=== PATIENT | female | born 1945 | race Caucasian/White ===

== ENCOUNTER 2016-09-22 08:20 | Outpatient (CLI) | payer MEDICARE, OTHER | END 2016-09-22 08:21 | disposition home or self-care (01) | DX: R31.9 Hematuria, unspecified (principal) ==

== ENCOUNTER 2016-09-27 08:06 | Outpatient (CLI) | payer MEDICARE, OTHER | END 2016-09-27 08:07 | disposition home or self-care (01) | DX: Z12.2 Encounter for screening for malignant neoplasm of respiratory organs (principal); Z87.891 Personal history of nicotine dependence ==

== ENCOUNTER 2017-01-24 09:21 | Outpatient (CLI) | payer MEDICARE, OTHER | END 2017-01-24 09:22 | disposition home or self-care (01) | DX: E78.5 Hyperlipidemia, unspecified (principal) ==

== ENCOUNTER 2017-05-12 17:25 | Outpatient (CLI) | payer MEDICARE, OTHER ==
[2017-05-12 13:34] LABS: ALBUMIN/GLOBULIN RATIO 1.9 (1.0-2.2); BILIRUBIN,TOTAL 0.7 mg/dL (0.2-1.0); CALCIUM 9.3 mg/dL (8.5-10.3); CREATININE 0.4 mg/dL (0.4-1.0); POTASSIUM 3.9 mmol/L (3.5-5.0)
[2017-05-12 13:36] LABS: BASOPHILS # (AUTO) 0.1 10^3/uL (0.0-0.1); BASOPHILS % (AUTO) 1.2 %; EOSINOPHILS # (AUTO) 0.1 10^3/uL (0.0-0.7); EOSINOPHILS % (AUTO) 2.5 %; HCT - HEMATOCRIT 40.8 % (37.0-47.0); HGB - HEMOGLOBIN 13.9 g/dL (12.0-16.0); INR 0.9 (0.8-1.2); LYMPHOCYTES # (AUTO) 1.6 10^3/uL (1.5-3.5); LYMPHOCYTES % (AUTO) 27.8 %; MEAN CORPUSCULAR HEMOGLOBIN 32.3 pg (27.0-31.0); MEAN CORPUSCULAR VOLUME 94.9 fL (81.0-99.0); MEAN PLATELET VOLUME 8.8 fL (7.9-10.8); MONOCYTES # (AUTO) 0.6 10^3/uL (0.0-1.0); MONOCYTES % (AUTO) 9.9 %; NEUTROPHILS # (AUTO) 3.3 10^3/uL (1.5-6.6); NEUTROPHILS % (AUTO) 58.6 %; NUCLEATED RED BLOOD CELLS AUTO 0.1 /100WBC; PT - PROTHROMBIN TIME 9.9 secs (9.9-12.6); RED BLOOD COUNT 4.29 10^6/uL (4.20-5.40); RED CELL DISTRIBUTION WIDTH 13.5 % (12.0-15.0); UNCORRECTED WHITE BLOOD COUNT 5.7 x10^3/uL; WHITE BLOOD COUNT 5.7 x10^3/uL (4.8-10.8)
[2017-05-12 13:48] LABS: PARTIAL THROMBOPLASTIN TIME 28.5 secs (24.9-33.3)
== END 2017-05-12 17:26 | disposition home or self-care (01) ==
LOC: LAB.WCP 17:25
PROVIDERS: ATTEND Physician Assistant Medical
DX: R23.8 Other skin changes (principal)
CPT/HCPCS: 36415; 80053; 85025; 85610; 85730

== ENCOUNTER 2017-08-18 10:16 | Outpatient (CLI) | payer MEDICARE, OTHER ==
--- NOTE | 2017-08-19 17:38 | Mammography Report ---
DIGITAL SCREENING MAMMOGRAM: 08/18/2017 CLINICAL INDICATION: A 71-year-old for screening. COMPARISON: 07/2016, 08/2015, 07/2015, 11/2013, 11/2012, 06/2011, 06/2010. TECHNIQUE: Routine CC and MLO projections were obtained of the breasts. The breasts again demonstrate scattered fibroglandular densities bilaterally. Coarse, typically bryan gn calcifications are present. No suspicious masses, clustered microcalcifications, or regions of ar chitectural distortion are identified. IMPRESSION: BENIGN FINDINGS. RECOMMENDATION: ROUTINE ANNUAL SCREENING UNLESS OTHERWISE CLINICALLY INDICATED. BIRADS CATEGORY: 2, BENIGN FINDINGS. STANDARD QUALIFYING STATEMENTS 1. This examination was reviewed with the aid of Computed-Aided Detection (CAD). 2. A negative or benign imaging report should not delay biopsy if clinically suspicious findings are present. Consider surgical consultation if warranted. More than 5% of cancers are not identified b y imaging. 3. Dense breasts may obscure an underlying neoplasm. JOB #: [id number] EXT JOB #:[id number]
== END 2017-08-18 10:17 | disposition home or self-care (01) ==
LOC: DI 10:16
PROVIDERS: ATTEND Physician Assistant Medical
DX: Z12.31 Encounter for screening mammogram for malignant neoplasm of breast (principal)
CPT/HCPCS: 77067

== ENCOUNTER 2017-08-23 07:56 | Outpatient (CLI) | payer MEDICARE, OTHER ==
--- NOTE | 2017-08-23 17:05 | MRI Report ---
EXAM: MRI LUMBAR SPINE WITHOUT CONTRAST EXAM DATE: 08/23/2017 08:34 AM. CLINICAL HISTORY: Lumbar radiculopathy. COMPARISON: CT abdomen pelvis 08/18/2016. TECHNIQUE: Multiplanar, multisequence T1-weighted and fluid-sensitive sequences of the lumbar spine f rom T12 to S1 without contrast. Other: None. FINDINGS: Spinal Cord: The conus terminates at L1. The conus medullaris and cauda equina are unremarkable. Alignment: Normal alignment. No spondylolisthesis. Bone Marrow: There are 4 [id number]-[id number]-[id number] lumbar-type vertebral bodies. There is a lumbosacral transit ional segment which is predominantly sacralized referred to as S1 for the purposes of this report. No fractures are identified. L1 vertebral body hemangioma. Diskogenic endplate edema at the L1-L2 and L 4-S1 levels. Disk Levels/Facets: T12-L1: Unremarkable. L1-L2: Disk height loss and dehydration. Annular disk bulge and mild degenerative facet arthropathy. Mild effacement of the thecal sac. No significant foraminal stenosis. L2-L3: Disk height loss and dehydration. Annular disk bulge and moderate degenerative facet arthropat hy. Mild effacement of the thecal sac. No significant foraminal stenosis. L3-L4: Disk height loss and dehydration. Annular disk bulge and moderate degenerative facet arthropat hy. Mild effacement of the thecal sac. Mild inferior foraminal narrowing bilaterally. L4-S1: Disk height loss and dehydration. Annular disk bulge with superimposed broad-based left parace ntral and foraminal protrusion with tiny annular fissure. Mild left lateral recess stenosis with disk protrusion touching but not definitely displacing left-sided nerve roots. Severe left and moderate r ight degenerative facet arthropathy. Mild left foraminal stenosis. Musculature: Atrophy of the lower paraspinous musculature. Other: The partially visualized retroperitoneum is unremarkable. IMPRESSION: 1. There are 4 [id number] lumbar-type vertebral bodies. The predominantly sacralized lumbosacral transitional segment is referred to as S1 for the purposes of this report. Exact numbering would req uire whole spine imaging. If any surgical intervention is pursued, recommend close intraoperative jason ging correlation. 2. Moderate multilevel lumbar degenerative disk and facet arthropathy with mild effacement of the the octavio sac. 3. Mild foraminal stenosis on the left at L4-S1. Comment: The following findings are so common in adults without low back pain that while we report th eir presence, they must be interpreted with caution and in the context of the clinical situation. (Re eulogio Beaulieu et al, Spine 2001) Prevalence of findings in patients without low back pain: Disk degeneration (any evidence): 92% Disk desiccation/T2 signal loss: 83% Disk height loss: 56% Disk bulge: 64% Disk protrusion: 32% Annular tear/high intensity zone: 38% [facility] Referring Provider Line: [phone] SITE ID: [id number]
== END 2017-08-23 07:57 | disposition home or self-care (01) ==
LOC: DI 07:56
PROVIDERS: ATTEND Physician Assistant Medical
DX: M51.36 Other intervertebral disc degeneration, lumbar region (principal); M47.896 Other spondylosis, lumbar region; Q76.49 Other congenital malformations of spine, not associated with scoliosis; M51.27 Other intervertebral disc displacement, lumbosacral region; M51.37 Other intervertebral disc degeneration, lumbosacral region; M47.897 Other spondylosis, lumbosacral region; N95.9 Unspecified menopausal and perimenopausal disorder
CPT/HCPCS: 72148; 77080

== ENCOUNTER 2017-08-23 09:14 | Outpatient (CLI) | payer MEDICARE, OTHER ==
--- NOTE | 2017-08-25 15:14 | DEXA Report ---
DEXA SCAN: 08/23/2017 HISTORY: Primary ovarian failure, inflammatory bowel disease. TECHNIQUE: Dual energy x-ray absorptiometry (DXA) was performed on a [employer] system. Regions measured are the AP spine, femoral neck, and, if needed, forearm. COMPARISON: None. In accordance with the International Society for Clinical Densitometry (ISCD) guidelines, data from previous exams may be reanalyzed using current recommendations and techniques. This is done to allow a more accurate basis for comparison with the current study. FINDINGS LUMBAR SPINE DATA: REGION BMD (g/cm/cm) T-SCORE Z-SCORE L1 1.096 -0.3 2.1 L2 1.257 0.5 2.9 L3 1.529 2.7 5.1 L4 1.694 4.1 6.5 TOTAL 1.418 2.0 4.4 NOTE: All evaluable vertebrae are used for classification. HIP DATA: REGION BMD (g/cm/cm) T-SCORE Z-SCORE Neck 0.971 -0.5 1.8 TOTAL 1.030 0.2 2.3 NOTE: The femoral neck or total proximal femur, whichever is lowest, is used for classification. IMPRESSION THE WHO CLASSIFICATION BASED ON THE INTERNATIONAL REFERENCE STANDARD: NORMAL. FRACTURE RISK: LOW. RECOMMENDATION: Patients with diagnosis of osteoporosis or osteopenia should have regular bone mineral density assessment. For those eligible for Medicare, routine testing is allowed once every 2 years. Testing frequency can be increased for patients who have rapidly progressing disease or for those who are receiving medical therapy to restore bone mass. COMMENT: World Health Organization (WHO) definitions for osteoporosis and osteopenia: NORMAL BMD: T-score at -1.0 or higher, fracture risk is low. OSTEOPENIA BMD: T-score between -1.0 and -2.5, fracture risk is increased. OSTEOPOROSIS BMD: T-score at -2.5 or lower, fracture risk high. National Osteoporosis Foundation recommends: 1. Obtain adequate dietary calcium (at least 1200 mg per day) and vitamin D (400 -800 international units per day). 2. Participate, as appropriate, in regular weightbearing and muscle- strengthening exercise. 3. Avoid tobacco use and reduce alcohol and caffeine intake. 4. For more detailed information see the website at www.NOF.org. MTDD
== END 2017-08-23 09:15 | disposition home or self-care (01) ==
LOC: DI 09:14
PROVIDERS: ATTEND Physician Assistant Medical
DX: N95.9 Unspecified menopausal and perimenopausal disorder (principal)
CPT/HCPCS: 77080

== ENCOUNTER 2018-02-07 08:00 | Outpatient (CLI) | payer MEDICARE, OTHER | END 2018-02-07 08:01 | disposition home or self-care (01) | LOC: LAB.WCP 08:00 | PROVIDERS: ATTEND Physician Assistant Medical | DX: N39.0 Urinary tract infection, site not specified (principal) | CPT/HCPCS: 87086 ==

== ENCOUNTER 2018-02-08 08:00 | Outpatient (CLI) | payer MEDICARE, OTHER | END 2018-02-08 08:01 | LOC: LAB.WCP 08:00 | PROVIDERS: ATTEND Physician Assistant Medical | DX: K52.9 Noninfective gastroenteritis and colitis, unspecified (principal) | CPT/HCPCS: 87493 ==